=== PATIENT | female | born 1945 | race Two or more races ===

== ENCOUNTER 2020-01-25 13:40 | Outpatient (RCR) | payer MEDICARE, OTHER | END 2020-02-07 | disposition home or self-care (01) | LOC: WCC 13:40 | DX: L97.823 Non-pressure chronic ulcer of other part of left lower leg with necrosis of muscle (principal); I73.9 Peripheral vascular disease, unspecified; Z96.641 Presence of right artificial hip joint; Z85.43 Personal history of malignant neoplasm of ovary; Z79.899 Other long term (current) drug therapy; Z79.84 Long term (current) use of oral hypoglycemic drugs | CPT/HCPCS: 11043; 11046 ==

== ENCOUNTER 2020-02-08 13:49 | Outpatient (RCR) | payer MEDICARE, OTHER | END 2020-03-08 | disposition home or self-care (01) | LOC: WCC 13:49 | DX: L97.823 Non-pressure chronic ulcer of other part of left lower leg with necrosis of muscle (principal); I73.9 Peripheral vascular disease, unspecified | CPT/HCPCS: 11043; 29580 ==

== ENCOUNTER 2020-03-14 11:28 | Outpatient (RCR) | payer MEDICARE, OTHER | END 2020-04-08 | disposition home or self-care (01) | LOC: WCC 11:28 | DX: L97.823 Non-pressure chronic ulcer of other part of left lower leg with necrosis of muscle (principal); I73.9 Peripheral vascular disease, unspecified; Z96.641 Presence of right artificial hip joint | CPT/HCPCS: 11042; 11043; 29580; G0463 ==

== ENCOUNTER 2020-04-11 10:56 | Outpatient (RCR) | payer MEDICARE, OTHER | END 2020-05-08 | disposition home or self-care (01) | LOC: WCC 10:56 | DX: L97.929 Non-pressure chronic ulcer of unspecified part of left lower leg with unspecified severity (principal); I73.9 Peripheral vascular disease, unspecified; L97.822 Non-pressure chronic ulcer of other part of left lower leg with fat layer exposed; Z96.641 Presence of right artificial hip joint; E11.9 Type 2 diabetes mellitus without complications; Z85.43 Personal history of malignant neoplasm of ovary; Z79.84 Long term (current) use of oral hypoglycemic drugs; Z79.899 Other long term (current) drug therapy | CPT/HCPCS: G0463 ×2 ==